=== PATIENT | female | born 1985 | race Caucasian/White ===

== ENCOUNTER 2018-07-22 19:01 | Emergency (ER) | payer SELFPAY ==
[~2018-07-22] VITALS: Ht 160 cm; Wt 108.9 kg
[~2018-07-22 19:01] MED LIST: AC500T PO; AMOX500C2 PO; AMOX875T2 PO; CODE-54 PO; DOXY100C2 PO; IBP600T1 PO; IBP800T; IBP800T PO; NAPR-243; OSLT75C PO; PENI500T PO; PNV1TABL PO; TRAM50TA2 PO; TRM50T PO; [UNRECOGNIZED DRUG - REMARK]
--- NOTE | 2018-07-22 20:29 | ED Lower Extremity ---
General Chief Complaint: Lower Extremity Stated Complaint: L LEG PAIN/SWELLING Nursing Triage Note: PT REPORTS HAVING BILATERAL CALF PAIN ABOUT A WEEK AGO BEFORE SHE WENT ON VACATION. PT STATES THAT PAIN HAS GOTTEN WORSE IN THE LEFT CALF. PT REPORTS THAT WALKING MAKES THE PAIN WORSE TO THE POINT THAT SHE CAN BARELY GET AROUND. Nursing Sepsis Screen: No Definite Risk Source: patient Exam Limitations: no limitations History of Present Illness Date Seen by Provider: Jul 22, 2018 Time Seen by Provider: 20:26 Initial Comments To ER with intermittent lateral left leg pain for the past 2 weeks. The pain began 1 day while she was at [facility] but then went away. She then went on vacation to [place] and walked quite a lot, she's had some intermittent pain to both lower extremities laterally though the right lower extremity pain has subsided. She felt as though the left lower extremity might be a bit swollen today and more firm compared to the right. She is a nonsmoker. She is not on any exogenous estrogen. No personal or family history of DVT. She is pain-free at this very moment. The pain is intermittent. Onset: this evening Severity: moderate Pain/Injury Location: left leg Method of Injury: unknown Modifying Factors: Worse With Movement Allergies and Home Medications Allergies Coded Allergies: No Known Drug Allergies (Unverified , 07/22/18) Home Medications Acetaminophen 500 Mg Tablet, 1,000 MG PO Q6H PRN for PAIN, (Reported) Amoxicillin 500 Mg Capsule, 2 EACH PO TID Prescribed by: MARIO JAMESON on 07/01/13 1405 Amoxicillin 875 Mg Tablet, 875 MG PO BID Prescribed by: CHARITY OVALLE on 08/24/15 013 Oseltamivir Phosphate 75 Mg Cap, 75 MG PO BID Prescribed by: CHARITY OVALLE on 08/24/15 013 Tramadol Hcl 50 Mg Tablet, 50 MG PO Q4H PRN for PAIN Prescribed by: MARIO JAMESON on 07/01/13 1405 Patient Home Medication List Home Medication List Reviewed: Yes Review of Systems Constitutional: see HPI EENTM: see HPI Respiratory: no symptoms reported Cardiovascular: no symptoms reported Genitourinary: no symptoms reported Musculoskeletal: see HPI Skin: see HPI Psychiatric/Neurological: No Symptoms Reported Past Jdqxqmh-Hogmtz-Zlmzjc Hx Patient Social History Alcohol Use: Rarely Uses Recreational Drug Use: Yes Drug of Choice: MARIJUANA Smoking Status: Never a Smoker Recent Foreign Travel: No Contact w/Someone Who Travel: No Recent Infectious Disease Expo: No Recent Hopitalizations: No Seasonal Allergies Seasonal Allergies: No Past Medical History Surgeries: Yes (D & C) Respiratory: No Cardiac: No Palpitations Neurological: No Reproductive Disorders: No NURSING INSTRUCTOR History: Tubal Ligation Genitourinary: No Gastrointestinal: No Musculoskeletal: No Endocrine: No HEENT: No Cancer: No Psychosocial: Yes Anxiety Integumentary: No Blood Disorders: No Physical Exam Vital Signs Vital Signs - First Documented 07/22/18 19:36 Temp 98.6 Pulse 83 Resp 12 B/P (MAP) 141/91 (108) Pulse Ox 96 Capillary Refill : Less Than 3 Seconds Height, Weight, BMI Height: 5'3.00" Weight: 240lbs. oz. 108.107259er; BMI Method:Stated General Appearance: WD/WN, no apparent distress HEENT: PERRL/EOMI, normal ENT inspection Neck: non-tender, full range of motion Respiratory: no respiratory distress, no accessory muscle use Hips: bilateral hip non-tender, bilateral hip normal inspection, bilateral hip normal range of motion Legs: left leg other (there is no discoloration of the skin to either lower extremity. The dorsalis pedis pulses +2 bilaterally. The left calf is firm. However I'm able to passively dorsiflex and plantar flex as well as medially rotate the ankle and laterally rotate the ankle without any increase in pain so I do not suspect an exertional compartment syndrome.) Knees: bilateral knee non-tender, bilateral knee normal inspection, bilateral knee normal range of motion Ankles: bilateral ankle non-tender, bilateral ankle normal inspection, bilateral ankle normal range of motion Feet: bilateral foot non-tender, bilateral foot normal inspection, bilateral foot normal range of motion Neurologic/Psychiatric: alert, normal mood/affect, oriented x 3 Skin: normal color, warm/dry [place] it is perfectly symmetrical at 16& 3/4 inches bilaterally Progress/Results/Core Measures Results/Orders Lab Results Laboratory Tests Test 07/22/18 20:30 Range/Units White Blood Count 12.0 H 4.3-11.0 10^3/uL Red Blood Count 4.58 4.35-5.85 10^6/uL Hemoglobin 12.8 11.5-16.0 G/DL Hematocrit 40 35-52 % Mean Corpuscular Volume 88 80-99 FL Mean Corpuscular Hemoglobin 28 25-34 PG Mean Corpuscular Hemoglobin Concent 32 32-36 G/DL Red Cell Distribution Width 13.7 10.0-14.5 % Platelet Count 311 130-400 10^3/uL Mean Platelet Volume 10.4 7.4-10.4 FL Neutrophils (%) (Auto) 59 42-75 % Lymphocytes (%) (Auto) 32 12-44 % Monocytes (%) (Auto) 7 0-12 % Eosinophils (%) (Auto) 1 0-10 % Basophils (%) (Auto) 0 0-10 % Neutrophils # (Auto) 7.1 1.8-7.8 X 10^3 Lymphocytes # (Auto) 3.9 1.0-4.0 X 10^3 Monocytes # (Auto) 0.9 0.0-1.0 X 10^3 Eosinophils # (Auto) 0.2 0.0-0.3 10^3/uL Basophils # (Auto) 0.0 0.0-0.1 10^3/uL D-Dimer 0.38 0.00-0.49 UG/ML Serum Test, Qualitative NEGATIVE NEGATIVE My Orders Orders - LARA ALFARO APRN Cbc With Automated Diff (07/22/18 19:51) Basic Metabolic Panel (07/22/18 19:51) Fibrin Degradation Products (07/22/18 19:51) Hcg,Qualitative Serum (07/22/18 19:51) Tibia/Fibula, Left, 2 Views (07/22/18 20:44) Vital Signs/I&O 07/22/18 19:36 Temp 98.6 Pulse 83 Resp 12 B/P (MAP) 141/91 (108) Pulse Ox 96 Blood Pressure Mean: 108 Departure Impression Primary Impression: Left leg pain Disposition: 01 HOME, SELF-CARE Condition: Stable Departure-Patient Inst. Decision time for Depature: 20:45 Referrals: [facility] (PCP/Family) Primary Care Physician Patient Instructions: NO INSTRUCTIONS GIVEN Add. Discharge Instructions: 1. Follow-up with your doctor next week for recheck. Tylenol and Motrin for pain control. LARA ALFARO APRN Jul 22, 2018 20:29
[2018-07-22 20:36] LABS: BASOPHILS % (AUTO) 0 % (0-10); EOSINOPHILS # (AUTO) 0.2 10^3/uL (0.0-0.3); EOSINOPHILS % (AUTO) 1 % (0-10); HEMATOCRIT 40 % (35-52); HEMOGLOBIN 12.8 G/DL (11.5-16.0); LYMPHOCYTES # (AUTO) 3.9 X 10^3 (1.0-4.0); LYMPHOCYTES % (AUTO) 32 % (12-44); MEAN CORPUSCULAR HEMOGLOBIN 28 PG (25-34); MEAN CORPUSCULAR HGB CONC 32 G/DL (32-36); MEAN CORPUSCULAR VOLUME 88 FL (80-99); MEAN PLATELET VOLUME 10.4 FL (7.4-10.4); MONOCYTES # (AUTO) 0.9 X 10^3 (0.0-1.0); MONOCYTES % (AUTO) 7 % (0-12); NEUTROPHILS # (AUTO) 7.1 X 10^3 (1.8-7.8); NEUTROPHILS % (AUTO) 59 % (42-75); PLATELET COUNT 311 10^3/uL (130-400); RED CELL DISTRIBUTION WIDTH 13.7 % (10.0-14.5)
[2018-07-22 20:58] LABS: BUN/CREATININE RATIO 14; CALCIUM 9.3 MG/DL (8.5-10.1); CARBON DIOXIDE 27 MMOL/L (21-32); CHLORIDE 105 MMOL/L (98-107); CREATININE SERUM 0.73 MG/DL (0.60-1.30); GFR ESTIMATED > 60; GLUCOSE 95 MG/DL (70-105); POTASSIUM 3.9 MMOL/L (3.6-5.0); SODIUM 142 MMOL/L (135-145)
--- NOTE | 2018-07-22 21:13 | Diagnostic Imaging Report ---
INDICATION: Having bilateral calf pain for about a week. EXAMINATION: Tibia and fibula left dated 07/22/2018 FINDINGS: Four views of the tibia and fibula No fracture or dislocation appreciated. Osseous fragment adjacent to the distal fibula appears chronic. Soft tissues demonstrate no gross acute abnormalities. There is a linear density in the proximal tibia which is nonspecific but has a benign appearance. IMPRESSION: 1. Chronic findings. No acute process. Dictated by: Dictated on workstation # [id number]
[2018-07-22 21:20] VITALS: BP 138/87
== END 2018-07-22 21:28 | disposition home or self-care (01) ==
LOC: EDUNIT# 19:01 → ER 19:02
DX: M79.605 Pain in left leg (principal); F41.9 Anxiety disorder, unspecified; F12.10 Cannabis abuse, uncomplicated; Z98.51 Tubal ligation status; Z98.890 Other specified postprocedural states
CPT/HCPCS: 36415; 73590; 80048; 84703; 85025; 85379

== ENCOUNTER 2018-07-30 16:06 | Emergency (ER) | payer SELFPAY ==
--- OUTSIDE RECORDS SUMMARY | 2018-07-30 16:10 | XMS REPORT ---
Author Author KATHIE STODDARD [facility] Address [address] [place] [address] Care Team Providers Care Manometer Technician Name Role Phone KATHIE STODDARD Unavailable PROBLEMS Type Condition ICD9-CM Code [id number] Code Onset Dates Condition Status SNOMED Code Problem Acute stress reaction F43.0 Active 66641966 Problem Non morbid obesity due to excess calories E66.09 Active 968017726 Problem Generalized anxiety disorder 300.02 Active 35057563 ALLERGIES No Known Allergies ENCOUNTERS Encounter Location Date Diagnosis [facility] [address] [address] September, [facility] [address] [address] September, Right shoulder pain, unspecified chronicity M25.511 [facility] [address] [address] Apr, Chest pain, unspecified type R07.9 and Acute stress reaction F43.0 [facility] [id number] [place] [address] Apr, [facility] [address] [address] Jul, Costochondritis M94.0 and Non morbid obesity due to excess calories E66.09 [facility] [address] [address] Jul, [facility] [address] [address] Jul, [facility] [address] [address] Jun, Routine gynecological examination Z01.419 [facility] [address] [facility] [id number] [place] [address] Apr, Atypical pneumonia J18.9 [facility] [address] [facility] [id number], [place] [address] Mar, Encounter for immunization Z23 [facility] [address] [facility] [id number], [place] [address] Jan, [facility] [address] [facility] [id number] [address] Dec, IMMUNIZATIONS No Known Immunizations SOCIAL HISTORY Never Assessed REASON FOR VISIT Pain (acute) shoulder Pt c/o pain in R shoulder, states is worse with movement , started 2 weeks ago ERIK Zhang PLAN OF CARE Activity Details Follow Up prn Reason: VITAL SIGNS Height 63 in 2017-09-12 Weight 239.6 lbs 2017-09-12 Temperature 97.2 degrees Fahrenheit 2017-09-12 Heart Rate 80 bpm 2017-09-12 Respiratory Rate 20 2017-09-12 BMI 42.44 kg/m2 2017-09-12 Blood pressure systolic 124 mmHg 2017-09-12 Blood pressure diastolic 82 mmHg 2017-09-12 MEDICATIONS Medication Instructions Dosage Frequency Start Date End Date Duration Status Albuterol Sulfate (2.5 MG/3ML) 0.083% Inhalation every 6 hrs as needed 3 ml Apr, 5 days Active RESULTS Name Result Date Reference Range Xray : Shoulder, Right 2 view (IN HOUSE) 2017-09-12 PROCEDURES Procedure Date Ordered Result Body Site X-RAY EXAM OF SHOULDER September 12, 2017 INSTRUCTIONS MEDICATIONS ADMINISTERED No Known Medications MEDICAL (GENERAL) HISTORY Type Description Date Surgical History Tubal Ligation 2012 Surgical History dilatation and curettage 2006 Hospitalization History Childbirth
--- OUTSIDE RECORDS SUMMARY | 2018-07-30 16:10 | XMS REPORT ---
Author Author LAFLEURLIONEL Ross Organization [facility] Address [address] [place] [address] Care Team Providers Care Plastics Production Machine Operator Name Role Phone LIONEL LAFLEUR Unavailable PROBLEMS Type Condition ICD9-CM Code [id number] Code Onset Dates Condition Status SNOMED Code Problem Acute stress reaction F43.0 Active 22593513 Problem Non morbid obesity due to excess calories E66.09 Active 301575971 Problem Generalized anxiety disorder 300.02 Active 56699190 ALLERGIES No Information ENCOUNTERS Encounter Location Date Diagnosis [facility] [address] [address] September, [facility] [address] [address] September, Right shoulder pain, unspecified chronicity M25.511 [facility] [id number] [place] [address] Apr, Chest pain, unspecified type R07.9 and Acute stress reaction F43.0 [facility] [id number] [place] [address] Apr, [facility] [id number] [place] [address] Jul, Costochondritis M94.0 and Non morbid obesity due to excess calories E66.09 [facility] [address] [address] Jul, [facility] [address] [address] Jul, [facility] [id number] [place] [address] 28 Feb, 2017 Routine gynecological examination Z01.419 [facility] [address] [facility] [id number] [place] [address] Apr, Atypical pneumonia J18.9 [facility] [address] [id number], [place] [address] Mar, Encounter for immunization Z23 [facility] [address] [id number] [address] Jan, [facility] [address] [id number], [place] [address] Dec, IMMUNIZATIONS No Known Immunizations SOCIAL HISTORY Never Assessed REASON FOR VISIT FYI PLAN OF CARE VITAL SIGNS MEDICATIONS Unknown Medications RESULTS No Results PROCEDURES No Known procedures INSTRUCTIONS MEDICATIONS ADMINISTERED No Known Medications MEDICAL (GENERAL) HISTORY Type Description Date Surgical History Tubal Ligation 2012 Surgical History dilatation and curettage 2006 Hospitalization History Childbirth
--- OUTSIDE RECORDS SUMMARY | 2018-07-30 16:10 | XMS REPORT ---
Author Author ANDREW GERARDO [facility] Address [address] [place] [address] Care Team Providers Care Steel Wheel Engraver Name Role Phone ANDREW GERARDO Unavailable PROBLEMS Type Condition ICD9-CM Code UHG22-KB Code Onset Dates Condition Status SNOMED Code Problem Non morbid obesity due to excess calories E66.09 Active 130348104 Problem Generalized anxiety disorder 300.02 Active 91313380 ALLERGIES No Information SOCIAL HISTORY Never Assessed PLAN OF CARE VITAL SIGNS MEDICATIONS No Known Medications RESULTS No Results PROCEDURES No Known procedures IMMUNIZATIONS No Known Immunizations MEDICAL (GENERAL) HISTORY Type Description Date Surgical History Tubal Ligation 2012 Surgical History dilatation and curettage 2006 Hospitalization History Childbirth
--- OUTSIDE RECORDS SUMMARY | 2018-07-30 16:11 | XMS REPORT ---
Author Author ANDREW GERARDO Organization [facility] Address [address] [place] [address] Care Team Providers Care Bituminous Paving Machine Operator Name Role Phone HUMAIRA, ANDREW Unavailable PROBLEMS Type Condition ICD9-CM Code HFM01-IK Code Onset Dates Condition Status SNOMED Code Problem Non morbid obesity due to excess calories E66.09 Active 008723357 Problem Generalized anxiety disorder 300.02 Active 09581429 ALLERGIES No Known Allergies SOCIAL HISTORY Never Assessed PLAN OF CARE Activity Details Follow Up 1 Year, sooner prn Reason: VITAL SIGNS Height 63 in 2016-07-09 Weight 240.2 lbs 2016-07-09 Temperature 97.2 degrees Fahrenheit 2016-07-09 Heart Rate 84 bpm 2016-07-09 Respiratory Rate 20 2016-07-09 BMI 42.54 kg/m2 2016-07-09 Blood pressure systolic 132 mmHg 2016-07-09 Blood pressure diastolic 78 mmHg 2016-07-09 MEDICATIONS Medication Instructions Dosage Frequency Start Date End Date Duration Status Albuterol Sulfate (2.5 MG/3ML) 0.083% Inhalation every 6 hrs as needed 3 ml Apr, 5 days Active RESULTS Name Result Date Reference Range TRICHOMONAS (IN HOUSE) 2016-07-09 TRICHOMONAS Negative Control + Lot # [id number] Exp date 06/2017 BACTERIAL VAGINOSIS (IN HOUSE) 2016-07-09 RESULTS Negative Control + Lot # [id number] Exp date 01/2017 CULTURE, GENITAL 2016-07-09 Genital Culture, Routine Final report Result 1 PAP TEST W/ HPV REGARDLESS 2016-07-09 DIAGNOSIS: Specimen adequacy: Clinician provided ICD10: Performed by: . . Note: HPV, high-risk Negative Negative PDF Report 2016-07-09 PDF Report1 LCLS PROCEDURES Procedure Date Ordered Result Body Site SPECIMEN HANDLING Jul 09, 2016 GAR VAG, DNA, DIR PROBE Jul 09, 2016 No Charge Jul 09, 2016 TRICHOMONAS ASSAY W/OPTIC Jul 09, 2016 CULTURE, BACTERIA, OTHER Jul 09, 2016 IMMUNIZATIONS No Known Immunizations MEDICAL (GENERAL) HISTORY Type Description Date Surgical History Tubal Ligation 2012 Surgical History dilatation and curettage 2006 Hospitalization History Childbirth
--- OUTSIDE RECORDS SUMMARY | 2018-07-30 16:11 | XMS REPORT ---
Author Author CHAPARRITA SIN Organization [facility] Address [address] [place] [address] Care Team Providers Care Safety Investigator/Cause Analyst Name Role Phone CHAPARRITA SIN Unavailable PROBLEMS Type Condition ICD9-CM Code LSL24-BX Code Onset Dates Condition Status SNOMED Code Problem Acute stress reaction F43.0 Active 12487338 Problem Non morbid obesity due to excess calories E66.09 Active 790635067 Problem Generalized anxiety disorder 300.02 Active 91896532 ALLERGIES No Information ENCOUNTERS Encounter Location Date Diagnosis [facility] [address] [address] September, [facility] [address] [address] September, Right shoulder pain, unspecified chronicity M25.511 [facility] [address] [address] Apr, Chest pain, unspecified type R07.9 and Acute stress reaction F43.0 [facility] [id number] [place] [address] Apr, [facility] [id number] [place] [address] Jul, Costochondritis M94.0 and Non morbid obesity due to excess calories E66.09 [facility] [address] [address] Jul, [facility] [address] [address] Jul, [facility] [id number] [place] [address] 28 Feb, 2017 Routine gynecological examination Z01.419 [facility] [address] [id number] [address] Apr, Atypical pneumonia J18.9 [facility] [address] [id number], [place] [address] Mar, Encounter for immunization Z23 [facility] [address] [id number] [address] Jan, [facility] [id number], [place] [address] Dec, IMMUNIZATIONS No Known Immunizations SOCIAL HISTORY Never Assessed REASON FOR VISIT Phone call PLAN OF CARE VITAL SIGNS MEDICATIONS Unknown Medications RESULTS No Results PROCEDURES No Known procedures INSTRUCTIONS MEDICATIONS ADMINISTERED No Known Medications MEDICAL (GENERAL) HISTORY Type Description Date Surgical History Tubal Ligation 2012 Surgical History dilatation and curettage 2006 Hospitalization History Childbirth
--- OUTSIDE RECORDS SUMMARY | 2018-07-30 16:11 | XMS REPORT ---
Author ZACHERY Ny [facility] [employer] Address Unknown Phone Unavailable Care Team Providers Care Cat And Dog Bather Name Role Phone ZACHERY KATE CP Unavailable Allergies No Known Allergies Problems Problem Type Condition Code Onset Dates Condition Status Assessment Encounter for immunization Z23 Active Problem Generalized anxiety disorder 300.02 Active Medications No Known Medications Procedures Procedure Coding System Code Date FLUMIST QUAD (2-49 YRS)-MEDIMMUNE-2014 CPT-4 91998 Mar 20, 2015 Results No Known Results Immunizations Vaccine Administration Date FLUMIST QUAD (2-49 YRS)-MEDIMMUNE-2015 Mar 20, 2015 Summary Purpose eClinicalWorks Submission
--- OUTSIDE RECORDS SUMMARY | 2018-07-30 16:11 | XMS REPORT | Continuity of Care Document ---
Author Author [facility] Organization [facility] Address Unknown Phone Unavailable Allergies Active Description Code Type Severity Reaction Onset Reported/Identified Relationship to Patient Clinical Status Yes No Known Drug Allergies [id number] Drug Allergy Mild N/A 07/22/2018 Medications There is no data. Problems Date Dx Coded Attending Type Code Diagnosis Diagnosed By 06/28/2011 Ot 650 06/28/2011 Ot V27.0 12/17/2012 [facility] 300.02 AN GEN ANXIETY 07/01/2013 MARIO GEE Ot 034.0 STREP SORE THROAT 07/01/2013 MARIO GEE Ot 462 ACUTE PHARYNGITIS 07/04/2015 Ot 649.63 08/24/2015 Ot 649.63 08/24/2015 Ot 649.63 08/24/2015 VASQUEZ DO, CHRAITY K Ot R05 COUGH 08/24/2015 VASQUEZ DO, CHARITY K Ot R09.81 NASAL CONGESTION 08/24/2015 VASQUEZ DO, CHARITY K Ot R50.9 FEVER, UNSPECIFIED 08/24/2015 VASQUEZ DO, CHARITY K Ot R53.81 OTHER MALAISE 08/24/2015 VASQUEZ DO, CHARITY K Ot Z87.891 PERSONAL HISTORY OF NICOTINE DEPENDENCE 08/24/2015 VASQUEZ DO, CHARITY K Ot R05 08/24/2015 VASQUEZ DO, CHARITY K Ot R09.81 08/24/2015 VASQUEZ DO, CHARITY K Ot R50.9 08/24/2015 VASQUEZ DO, CHARITY K Ot R53.81 08/24/2015 VASQUEZ , CHARITY K Ot Z87.891 07/24/2018 LARA ALFARO ACCESS SPECIALIST Ot F12.10 CANNABIS ABUSE, UNCOMPLICATED 07/24/2018 LARA ALFARO APRN Ot F41.9 ANXIETY DISORDER, UNSPECIFIED 07/24/2018 LARA ALFARO ACCESS SPECIALIST Ot M79.605 PAIN IN LEFT LEG 07/24/2018 LARA ALFARO APRN Ot M79.89 OTHER SPECIFIED SOFT TISSUE DISORDERS 07/24/2018 LARA ALFARO APRN Ot Z98.51 TUBAL LIGATION STATUS 07/24/2018 LARA ALFARO APRN Ot Z98.890 OTHER SPECIFIED POSTPROCEDURAL STATES Procedures Code [place] [address] PSYCH DIAGNOSTIC EVALUATION 12/24/2012 Results Test Result Range Genital Culture, Routine - 07/09/16 11:03 Genital Culture, Routine Note Pap Lb, HPV-hr - 07/09/16 11:03 HPV, high-risk Negative Negative DIAGNOSIS: Comment Specimen adequacy: Comment Clinician provided ICD10: Comment Performed by: Comment . . Note: Comment Complete blood count (CBC) with automated white blood cell (WBC) differential - 07/22/18 20:30 Blood leukocytes automated count (number/volume) 12.0 10*3/uL 4.3-11.0 Blood erythrocytes automated count (number/volume) 4.58 10*6/uL 4.35-5.85 Venous blood hemoglobin measurement (mass/volume) 12.8 g/dL 11.5-16.0 Blood hematocrit (volume fraction) 40 % 35-52 Automated erythrocyte mean corpuscular volume 88 [foz_us] 80-99 Automated erythrocyte mean corpuscular hemoglobin (mass per erythrocyte) 28 pg 25-34 Automated erythrocyte mean corpuscular hemoglobin concentration measurement ( mass/volume) 32 g/dL 32-36 Automated erythrocyte distribution width ratio 13.7 % 10.0-14.5 Automated blood platelet count (count/volume) 311 10*3/uL 130-400 Automated blood platelet mean volume measurement 10.4 [foz_us] 7.4-10.4 Automated blood neutrophils/100 leukocytes 59 % 42-75 Automated blood lymphocytes/100 leukocytes 32 % 12-44 Blood monocytes/100 leukocytes 7 % 0-12 Automated blood eosinophils/100 leukocytes 1 % 0-10 Automated blood basophils/100 leukocytes 0 % 0-10 Blood neutrophils automated count (number/volume) 7.1 10*3 1.8-7.8 Blood lymphocytes automated count (number/volume) 3.9 10*3 1.0-4.0 Blood monocytes automated count (number/volume) 0.9 10*3 0.0-1.0 Automated eosinophil count 0.2 10*3/uL 0.0-0.3 Automated blood basophil count (count/volume) 0.0 10*3/uL 0.0-0.1 Serum or plasma choriogonadotropin ( test) detection - 07/22/18 20:30 Serum or plasma choriogonadotropin ( test) detection NEGATIVE NEGATIVE Fibrin D-dimer FEU measurement in platelet poor plasma (mass/volume) - 20:30 Fibrin D-dimer FEU measurement in platelet poor plasma (mass/volume) 0.38 ug/mL 0.00-0.49 Whole blood basic metabolic panel - 07/22/18 20:30 Serum or plasma sodium measurement (moles/volume) 142 mmol/L 135-145 Serum or plasma potassium measurement (moles/volume) 3.9 mmol/L 3.6-5.0 Serum or plasma chloride measurement (moles/volume) 105 mmol/L 98-107 Carbon dioxide 27 mmol/L 21-32 Serum or plasma anion gap determination (moles/volume) 10 mmol/L 5-14 Serum or plasma urea nitrogen measurement (mass/volume) 10 mg/dL 7-18 Serum or plasma creatinine measurement (mass/volume) 0.73 mg/dL 0.60-1.30 Serum or plasma urea nitrogen/creatinine mass ratio 14 NRG Serum or plasma creatinine measurement with calculation of estimated glomerular filtration rate > NRG Serum or plasma glucose measurement (mass/volume) 95 mg/dL 70-105 Serum or plasma calcium measurement (mass/volume) 9.3 mg/dL 8.5-10.1 Encounters ACCT No. Visit Date/Time Discharge Status Pt. Type Provider Facility Loc./Unit Complaint [id number] 07/22/2018 19:02:00 07/22/2018 21:28:00 DIS Outpatient LARA ALFARO APRN [facility] ER L LEG PAIN/SWELLING [id number] 08/24/2015 00:03:00 08/24/2015 02:02:00 DIS Emergency CHARITY OVALLE DO [facility] ER COUGH,RUNNY NOSE,FEVER, BODY ACHE,GONZALEZ [id number] 07/01/2013 11:13:00 07/01/2013 14:16:00 DIS Emergency AMRIO GEE [facility] ER SORE THROAT [id number] 06/26/2011 19:25:00 Document Registration [id number] 03/21/2011 15:30:00 Document Registration [id number] 07/12/2016 15:10:00 Document Registration [id number] 07/15/2016 11:06:00 Document Registration [id number] 09/15/2017 18:40:00 09/15/2017 23:59:59 CLS Outpatient CHAPARRITA SIN [facility] [id number] 12/17/2012 14:49:00 12/17/2012 23:59:59 CLS Outpatient STARKS LEW [facility]RICH
--- OUTSIDE RECORDS SUMMARY | 2018-07-30 16:11 | XMS REPORT ---
Author Author EDDY DAY Organization [facility] Address [address] [place] [address] Care Team Providers Care Airborne Mission Systems Superintendent Name Role Phone EDDY DAY Unavailable PROBLEMS Type Condition ICD9-CM Code LWC99-MN Code Onset Dates Condition Status SNOMED Code Problem Generalized anxiety disorder 300.02 Active 59651717 Assessment Atypical pneumonia J18.9 Apr, Active 262818851 ALLERGIES Substance Reaction Event Type Date Status N.K.D.A. Unknown Non Drug Allergy Apr, Unknown SOCIAL HISTORY No smoking Hx information available PLAN OF CARE VITAL SIGNS Weight 236.2 lbs 2016-04-19 Heart Rate 76 bpm 2016-04-19 Respiratory Rate 22 2016-04-19 Blood pressure systolic 120 mmHg 2016-04-19 Blood pressure diastolic 76 mmHg 2016-04-19 MEDICATIONS Medication Instructions Dosage Frequency Start Date End Date Duration Status Albuterol Sulfate (2.5 MG/3ML) 0.083% Inhalation every 6 hrs as needed 3 ml Apr, 5 days Active Azithromycin 250 MG Orally Once a day 2 tablets on the first day, then 1 tablet daily for 4 days 24h Apr, Apr, 5 day(s) Active RESULTS No Results PROCEDURES Procedure Date Ordered Related Diagnosis Body Site ALBUTEROL UNIT DOSE FORM INHALED 2016-04-19 N/A ALBUTEROL INHAL UNIT DOSE 1 MG Apr 19, 2016 Office Visit, Est Pt., Level 3 Apr 19, 2016 IMMUNIZATIONS No Known Immunizations
--- OUTSIDE RECORDS SUMMARY | 2018-07-30 16:11 | XMS REPORT ---
Author Author LAFLEURLIONEL Ross Organization [facility] Address [address] [place] [address] Care Team Providers Care Quality Tester Name Role Phone LIONEL LAFLEUR Unavailable PROBLEMS Type Condition ICD9-CM Code AJW50-MV Code Onset Dates Condition Status SNOMED Code Problem Acute stress reaction F43.0 Active 11670218 Problem Non morbid obesity due to excess calories E66.09 Active 432204328 Problem Generalized anxiety disorder 300.02 Active 58860103 ALLERGIES No Known Allergies ENCOUNTERS Encounter Location Date Diagnosis [facility] [id number] [place] [phone] September, [facility] [address] [address] September, Right shoulder pain, unspecified chronicity M25.511 [facility] [address] [address] Apr, Chest pain, unspecified type R07.9 and Acute stress reaction F43.0 [facility] [id number] [place] [address] Apr, [facility] [id number] [place] [address] Jul, Costochondritis M94.0 and Non morbid obesity due to excess calories E66.09 [facility] [address] [address] Jul, [facility] [address] [address] Jul, [facility] [id number] [place] [address] Jun, Routine gynecological examination Z01.419 [facility] [address] [facility] [place] [id number] [place] [address] Apr, Atypical pneumonia J18.9 [facility] [address] [facility] [id number] [address] Mar, 2015 Encounter for immunization Z23 [facility] [address] [facility] [id number], [place] [address] Jan, [facility] [address] [facility] [id number], [place] [address] Dec, IMMUNIZATIONS No Known Immunizations SOCIAL HISTORY Never Assessed REASON FOR VISIT pulled muscle----DBennettRN, chest pain, intermittent x1 year, worsened yesterday and left arm numb then painful, and blurred vision in left eye PLAN OF CARE Activity Details Follow Up 4 Weeks Reason:f/u w PCP VITAL SIGNS Height 63 in 2017-04-18 Weight 240 lbs 2017-04-18 Temperature 98.1 degrees Fahrenheit 2017-04-18 Heart Rate 70 bpm 2017-04-18 Respiratory Rate 20 2017-04-18 BMI 42.51 kg/m2 2017-04-18 Blood pressure systolic 120 mmHg 2017-04-18 Blood pressure diastolic 84 mmHg 2017-04-18 MEDICATIONS Medication Instructions Dosage Frequency Start Date End Date Duration Status Albuterol Sulfate (2.5 MG/3ML) 0.083% Inhalation every 6 hrs as needed 3 ml Apr, 5 days Active RESULTS No Results PROCEDURES Procedure Date Ordered Result Body Site EKG, TRACING (IN-HOUSE) 2017-04-18 N/A ELECTROCARDIOGRAM, TRACING Apr 18, 2017 INSTRUCTIONS MEDICATIONS ADMINISTERED No Known Medications MEDICAL (GENERAL) HISTORY Type Description Date Surgical History Tubal Ligation 2012 Surgical History dilatation and curettage 2005 Hospitalization History Childbirth
--- OUTSIDE RECORDS SUMMARY | 2018-07-30 16:11 | XMS REPORT ---
Author Author CHAPARRITA SIN [facility] Address [address] [place] [address] Care Team Providers Care Household Appliance Repairer Name Role Phone CHAPARRITA SIN Unavailable PROBLEMS Type Condition ICD9-CM Code ZBN99-TM Code Onset Dates Condition Status SNOMED Code Problem Non morbid obesity due to excess calories E66.09 Active 564139247 Problem Generalized anxiety disorder 300.02 Active 55139322 ALLERGIES No Known Allergies SOCIAL HISTORY Never Assessed PLAN OF CARE VITAL SIGNS MEDICATIONS Medication Instructions Dosage Frequency Start Date End Date Duration Status Albuterol Sulfate (2.5 MG/3ML) 0.083% Inhalation every 6 hrs as needed 3 ml Apr, 5 days Active RESULTS No Results PROCEDURES No Known procedures IMMUNIZATIONS No Known Immunizations MEDICAL (GENERAL) HISTORY Type Description Date Surgical History Tubal Ligation 2012 Surgical History dilatation and curettage 2006 Hospitalization History Childbirth
== END 2018-07-30 17:35 | disposition left against medical advice (07) ==
LOC: EDUNIT# 16:06 → ER 16:07
DX: R07.9 Chest pain, unspecified (principal); F41.9 Anxiety disorder, unspecified

== ENCOUNTER → 2018-08-14 | Outpatient (CLI) | payer SELFPAY ==
--- NOTE | 2018-08-14 10:42 | Diagnostic Imaging Report ---
PROCEDURE: US Gallbladder. TECHNIQUE: Multiple real-time grayscale images were obtained over the right upper quadrant in various projections. INDICATION: Upper abdominal pain. FINDINGS: Liver is enlarged at 20 cm. There is diffuse increased echogenicity throughout the liver consistent with hepatic steatosis. Portal vein is patent and shows normal direction of flow. Gallbladder does contain multiple stones. Gallbladder wall is thickened up to 3 mm. No pericholecystic fluid or biliary ductal dilatation is seen. Pancreas is poorly visualized. Right kidney is unremarkable. There is no ascites. IMPRESSION: 1. Hepatomegaly and hepatic steatosis. 2. Cholelithiasis with gallbladder wall thickening, suspicious for acute cholecystitis. If this is of clinical concern, HIDA scan may be useful for further evaluation. Dictated by: Dictated on workstation # [id number]
== END ==
LOC: RAD 08:56
PROVIDERS: ATTEND Internal Medicine
DX: K80.20 Calculus of gallbladder without cholecystitis without obstruction (principal); K76.0 Fatty (change of) liver, not elsewhere classified; K82.8 Other specified diseases of gallbladder
CPT/HCPCS: 76705

== ENCOUNTER 2021-07-27 07:20 | Emergency (ER) | payer SELFPAY ==
[~2021-07-27] VITALS: Ht 160 cm; Wt 78.9 kg
--- NOTE | 2021-07-27 08:05 | ED General ---
General Chief Complaint: Back Problems Stated Complaint: LEFT UPPER BACK/RIB PAIN Nursing Triage Note: PT AMBULATE TO ROOM 06 WITH C/O LEFT UPPER BACK PAIN THAT RADIATES TO LEFT RIB. PT REPORTS PAIN DURING INHALATION AND WHEN MOVING ARM. PT REPORTS COUGH X3 DAYS. PT STATES THAT THIS PAIN HAS HAPPENED BEFORE AND IS RELATED TO HER ANXIETY. Source of Information: Patient Exam Limitations: No Limitations History of Present Illness Date Seen by Provider: Jul 27, 2021 Time Seen by Provider: 07:50 Initial Comments This 35-year-old woman presents to the emergency room with concerns about left mid back pain that radiates to the left lateral chest. It is worse with deep breathing and certain movements of her arm. She is tender to palpation in that region. She has had some subtle cough in recent days and had some left upper chest discomfort over the past couple of weeks which she attributes to her typical anxiety symptoms. She denies any chest pain today. She is afebrile and denies any other symptoms of infectious illness such as chills, nausea, diarrhea, upper respiratory symptoms, etc. Allergies and Home Medications Allergies Coded Allergies: No Known Drug Allergies (Unverified , 07/22/18) Patient Home Medication List Home Medication List Reviewed: Yes Acetaminophen (Tylenol) 500 Mg Tablet, 1,000 MG PO Q6H PRN for PAIN, (Reported) Entered as Reported by: MONSE RAMIREZ on 07/01/13 1127 Amoxicillin (Amoxicillin) 500 Mg Capsule, 2 EACH PO TID Prescribed by: MARIO JAMESON on 07/01/13 1405 Amoxicillin (Amoxicillin) 875 Mg Tablet, 875 MG PO BID Prescribed by: CHARITY OVALLE on 08/24/15 0139 Oseltamivir Phosphate (Tamiflu) 75 Mg Cap, 75 MG PO BID Prescribed by: CHARITY OVALLE on 08/24/15 0139 Tramadol Hcl (Tramadol Hcl) 50 Mg Tablet, 50 MG PO Q4H PRN for PAIN Prescribed by: MARIO JAMESON on 07/01/13 1405 Review of Systems Review of Systems Constitutional: no symptoms reported EENTM: no symptoms reported Respiratory: see HPI Cardiovascular: see HPI Gastrointestinal: no symptoms reported Genitourinary: no symptoms reported : No Musculoskeletal: see HPI Skin: no symptoms reported Psychiatric/Neurological: See HPI Hematologic/Lymphatic: No Symptoms Reported Immunological/Allergic: no symptoms reported Past Llmzico-Hnqcqi-Uerogt Hx Patient Social History Tobacco Use?: No Smoking Status: Never a Smoker Smokeless Tobacco Frequency: Never a User Use of E-Cig and/or Vaping dev: Yes E-Cig or Vaping type used: Nicotine Use of E-Cig and/or Vaping Jared: Light User Substance use?: Yes Substance type: Marijuana Substance frequency: Couple times a week Alcohol Use?: Yes Alcohol Frequency: Couple times a week Pt feels they are or have been: No Immunizations Up To Date First/Initial COVID19 Vaccinat: 04/03/21 Second COVID19 Vaccination Carlos: COVID19 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: [employer] Seasonal Allergies Seasonal Allergies: No Past Medical History Surgeries: Yes (D & C) Tubal Ligation Respiratory: No Cardiac: No Palpitations Neurological: No : No 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 oz. 108.070497pl; 30.00 BMI Method:Stated General Appearance: No Apparent Distress, WD/WN HEENT: PERRL/EOMI, Normal ENT Inspection Neck: Normal Inspection Respiratory: Lungs Clear, Normal Breath Sounds, No Accessory Muscle Use, Other (Left lateral chest wall tenderness to deeper palpation. Skin normal to exam. Not tender to light palpation.) Cardiovascular: Regular Rate, Rhythm, No Edema, No Murmur Back: Normal Inspection, No Vertebral Tenderness, Other (Tenderness in the left mid paraspinous musculature) Extremity: Normal Inspection, Non Tender, No Calf Tenderness, No Pedal Edema Neurologic/Psychiatric: Alert, Oriented x3, No Motor/Sensory Deficits, Normal Mood/Affect, design quality engineer II-XII Norm as Tested Skin: Normal Color, Warm/Dry; No Rash Progress/Results/Core Measures Suspected Sepsis SIRS Temperature: Pulse: 76 Respiratory Rate: 17 Blood Pressure 131 /83 Mean: 99 Results/Orders My Orders Orders - ARIANNE RAMOS MD Urine Bedside (07/27/21 07:58) Chest Pa/Lat (2 View) (07/27/21 07:58) Vital Signs/I&O 07/27/21 07:29 Temp 35.9 Pulse 76 Resp 17 B/P (MAP) 131/83 (99) O2 Delivery Room Air Capillary Refill : Less Than 3 Seconds Blood Pressure Mean: 99 Departure Impression Primary Impression: Mid back pain Additional Impression: Chest wall pain Disposition: 01 HOME, SELF-CARE Condition: Stable Departure-Patient Inst. Referrals: [facility] (PCP/Family) Primary Care Physician Patient Instructions: Upper Back Pain Add. Discharge Instructions: Your chest x-ray showed no evidence of pneumonia or rib injuries. Your pain is likely due to musculoskeletal inflammation or muscle strain. Treat your pain with ibuprofen up to 600 mg every 6 hours as needed. Add Tylenol (acetaminophen) up to 1000 mg every 6 hours as needed for additional pain relief. You may try icing or gentle heat in 20-minute intervals. Topical pain reliever such as lidocaine patches may also be used per package instructions. Call with questions or concerns. Return to the ER if you have worsening symptoms despite following these instructions. Follow-up with your primary care provider in 1 to 2 weeks if the pain does not resolve. All discharge instructions reviewed with patient and/or family. Voiced understanding. Copy Copies To 1: ZACHERY KATE JOSHUA T MD Jul 27, 2021 08:05
--- NOTE | 2021-07-27 08:38 | Diagnostic Imaging Report ---
INDICATION: Chest pain PA and lateral chest obtained at 8:24 a.m. Heart and mediastinal silhouette are normal in appearance. The lungs are clear. There is no pneumothorax or pleural fluid. IMPRESSION: Negative chest. Dictated by: Dictated on workstation # [id number]
[2021-07-27 09:05] VITALS: BP 131/76
== END 2021-07-27 09:05 | disposition home or self-care (01) ==
LOC: EDUNIT# 07:20 → ER 07:23
DX: R07.89 Other chest pain (principal); M54.6 Pain in thoracic spine
CPT/HCPCS: 71046; 84703

== ENCOUNTER 2022-10-04 09:54 | Emergency (ER) | payer SELFPAY ==
[~2022-10-04] VITALS: Ht 160 cm; Wt 86.2 kg
--- NOTE | 2022-10-04 10:41 | Diagnostic Imaging Report ---
Indication: Sternal chest pain radiating to the right shoulder. Time of Exam: 10:34 AM Correlation is made with prior chest 07/27/2021. Findings: The heart size is normal. The pulmonary vascularity is unremarkable. The lungs are clear. No infiltrate, effusion or pneumothorax is detected. Impression: No acute cardiopulmonary process is detected. Dictated by: Dictated on workstation # [id number]
--- NOTE | 2022-10-04 10:58 | ED Chest Pain ---
General Chief Complaint: Chest Pain Stated Complaint: IRREGULAR HEART RATE | Nursing Triage Note: PT AMBULATE TO ROOM 08 WITHOUT DIFFICULTY WITH C/O STERNAL CHEST PAIN RADIATING TO RIGHT SHOULDER. PT SENT FROM [facility] FROM [facility] WITH PULSE OF 48. PT PULSE OF 65 UPON ARRIVAL. PT REFUSING IV. Source: patient Exam Limitations: no limitations History of Present Illness Date Seen by Provider: October 04, 2022 Time Seen by Provider: 10:15 Initial Comments Here from [facility] with report of bradycardia in association with chest pain. She has been having that for most of the morning. She states that she usually has pain like this associated rotator cuff. She went to [facility] for the right upper chest pain. They did an EKG and were concerned about her heart rate. She states she became quite anxious and actually was getting some got twisting and she states that she has nervous bowel movements. It was during that time they did the EKG and then sent her here. She does have history of anxiety and she is off her BuSpar for the last several months. She was asked for prescription for that as well. Overall now she is feeling much better with respect to pain and is not short of breath. She has had no recent car rides, plane trips or trauma or surgery. No history of blood clots. She states the pain is worse when moving her right shoulder and better with rest. Timing/Duration: 4-6 hours Severity/Quality: mild, moderate Location: shoulder (Right), other (Right upper chest) Radiation: shoulders (Right), back (Right) Prior CP/Workup: no prior cardiac workup ASA po CREPE BOX TENDER: No NTG SL CREPE BOX TENDER: No Associated Symptoms: back pain; No nausea/vomiting, No shortness of breath, No weakness Allergies and Home Medications Allergies Coded Allergies: No Known Drug Allergies (Unverified , 07/22/18) Patient Home Medication List Home Medication List Reviewed: Yes Acetaminophen (Tylenol) 500 Mg Tablet, 1,000 MG PO Q6H PRN for PAIN, (Reported) Entered as Reported by: MONSE RAMIREZ on 07/01/13 1127 Amoxicillin (Amoxicillin) 500 Mg Capsule, 2 EACH PO TID Prescribed by: MARIO JAMESON on 07/01/13 1405 Amoxicillin (Amoxicillin) 875 Mg Tablet, 875 MG PO BID Prescribed by: CHARITY OVALLE on 08/24/15 0139 Oseltamivir Phosphate (Tamiflu) 75 Mg Cap, 75 MG PO BID Prescribed by: CHARITY OVALLE on 08/24/15 0139 Tramadol Hcl (Tramadol Hcl) 50 Mg Tablet, 50 MG PO Q4H PRN for PAIN Prescribed by: MARIO JAMESON on 07/01/13 1405 Review of Systems Review of Systems Constitutional: see HPI; No chills, No fever EENTM: No Symptoms Reported Respiratory: Denies Cough, Denies Shortness of Air Cardiovascular: Chest Pain; Denies Lightheadedness Gastrointestinal: Denies Nausea, Denies Vomiting Genitourinary: No Symptoms Reported Musculoskeletal: joint pain, muscle pain Skin: no symptoms reported Psychiatric/Neurological: Anxiety; Denies Headache Past Tcgeahv-Hlweqc-Ibhbwo Hx Patient Social History Tobacco Use?: No Smoking Status: Never a Smoker Smokeless Tobacco Frequency: Never a User Use of E-Cig and/or Vaping dev: No Use of E-Cig and/or Vaping Jared: Never a User Substance use?: Yes Substance type: Marijuana Substance frequency: Couple times a week Alcohol Use?: No Pt feels they are or have been: No Immunizations Up To Date First/Initial COVID19 Vaccinat: 04/03/21 Second COVID19 Vaccination Carlos: Seasonal Allergies Seasonal Allergies: No Past Medical History Surgeries: Yes (D & C) Tubal Ligation Respiratory: No Cardiac: No Palpitations Neurological: No 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 oz. 108.287524ih; 33.00 BMI Method:Stated General Appearance: No Apparent Distress, WD/WN Neck: Full Range of Motion, Normal Inspection, Non Tender, Supple Respiratory: Lungs Clear, Normal Breath Sounds Cardiovascular: Regular Rate, Rhythm, No Murmur Gastrointestinal: Non Tender, Soft Extremity: Normal Range of Motion, Non Tender, No Calf Tenderness Neurologic/Psychiatric: Alert, Oriented x3 Skin: Normal Color, Warm/Dry Progress/Results/Core Measures Results/Orders Lab Results Laboratory Tests Test 10/04/22 10:54 Range/Units White Blood Count 8.6 4.3-11.0 10^3/uL Red Blood Count 4.67 3.80-5.11 10^6/uL Hemoglobin 13.1 11.5-16.0 g/dL Hematocrit 40 35-52 % Mean Corpuscular Volume 86 80-99 fL Mean Corpuscular Hemoglobin 28 25-34 pg Mean Corpuscular Hemoglobin Concent 33 32-36 g/dL Red Cell Distribution Width 13.6 10.0-14.5 % Platelet Count 298 130-400 10^3/uL Mean Platelet Volume 10.5 9.0-12.2 fL Immature Granulocyte % (Auto) 0 % Neutrophils (%) (Auto) 58 42-75 % Lymphocytes (%) (Auto) 35 12-44 % Monocytes (%) (Auto) 6 0-12 % Eosinophils (%) (Auto) 1 0-10 % Basophils (%) (Auto) 1 0-10 % Neutrophils # (Auto) 5.0 1.8-7.8 10^3/uL Lymphocytes # (Auto) 3.0 1.0-4.0 10^3/uL Monocytes # (Auto) 0.5 0.0-1.0 10^3/uL Eosinophils # (Auto) 0.1 0.0-0.3 10^3/uL Basophils # (Auto) 0.1 0.0-0.1 10^3/uL Immature Granulocyte # (Auto) 0.0 0.0-0.1 10^3/uL Sodium Level 138 135-145 MMOL/L Potassium Level 3.7 3.6-5.0 MMOL/L Chloride Level 108 H 98-107 MMOL/L Carbon Dioxide Level 22 21-32 MMOL/L Anion Gap 8 5-14 MMOL/L Blood Urea Nitrogen 7 7-18 MG/DL Creatinine 0.67 0.60-1.30 MG/DL Estimat Glomerular Filtration Rate 115 BUN/Creatinine Ratio 10 Glucose Level 87 70-105 MG/DL Calcium Level 9.0 8.5-10.1 MG/DL Corrected Calcium 8.9 8.5-10.1 MG/DL Total Bilirubin 1.1 H 0.1-1.0 MG/DL Aspartate Amino Transf (AST/SGOT) 13 5-34 U/L Alanine Aminotransferase (ALT/SGPT) 14 0-55 U/L Alkaline Phosphatase 58 40-136 U/L Troponin I < 0.028 <0.028 NG/ML Total Protein 7.1 6.4-8.2 GM/DL Albumin 4.1 3.2-4.5 GM/DL My Orders Orders - RODNEY HEBERT MD Ekg Tracing (10/04/22 09:58) Cbc With Automated Diff (10/04/22 10:22) Comprehensive Metabolic Panel (10/04/22 10:22) Troponin I Canadian (10/04/22 10:22) Chest Pa/Lat (2 View) (10/04/22 10:22) Vital Signs/I&O 10/04/22 09:59 Temp 36.2 Pulse 62 Resp 19 B/P (MAP) 141/83 (102) O2 Delivery Room Air Blood Pressure Mean: 102 Progress Progress Note : Progress Note Seen and evaluated. Patient apparently is doing better now. She states that she really believes that this is musculoskeletal and origin. She is very nervous about an IV but is okay with the blood draw. She does admit to a visceral reaction with anxiety. This may be the cause of the bradycardia from the clinic. Ultimately we decided we will check basic labs via blood draw and check EKG and chest x-ray. Monitor patient. Patient denies shortness of breath and she has no indications of pulmonary embolism or risk of pulmonary embolism. No further evaluation for this. We will rule out cardiac event and check electrolytes as well as chest x-ray due to history of bronchitis recently. Differential diagnosis includes cardiac event, chest wall pain, lung abnormality, electrolyte abnormality 1025: Chest x-ray 2 view reviewed by me and shows no acute abnormality on my interpretation. Pending radiology report. 1145: Labs reviewed and CBC shows no acute findings. CMP grossly normal. Troponin is negative. EKG nonconcerning. X-ray nonconcerning. Overall she is feeling better. I think she is safe for discharge and this was discussed with the patient who agrees. Discharged home with return precautions. Patient verbalized understanding instructions and agreement with plan. Initial ECG Impression Date: October 04, 2022 Initial ECG Impression Time: 10:04 Initial ECG Rate: 57 Initial ECG Rhythm: S.Capo Comment Sinus bradycardia with sinus arrhythmia. Normal axis. No evidence of ST elevation [place]. Interpreted by me. Diagnostic Imaging Diagonstic Imaging: Xray Plain Films/CT/US/NM/MRI: chest Comments [facility] [place], [place] NAME: DERREK OLIVARES [facility] REC#: [id number] PT STATUS: REG ER : 1985 PHYSICIAN: RODNEY HEBERT MD ADMIT DATE: 10/04/22/ER Draft Date of Exam:10/04/22 CHEST PA/LAT (2 VIEW) Indication: Sternal chest pain radiating to the right shoulder. Time of Exam: 10:34 AM Correlation is made with prior chest 07/27/2021. Findings: The heart size is normal. The pulmonary vascularity is unremarkable. The lungs are clear. No infiltrate, effusion or pneumothorax is detected. Impression: No acute cardiopulmonary process is detected. Dictated on workstation # [id number] Dict: 10/04/22 1037 Trans: 10/04/22 1041 [facility] [id number] Interpreted by: JADYN SRINIVASAN MD Electronically signed by: Departure Impression Primary Impression: Chest pain Qualified Codes: R07.9 - Chest pain, unspecified Additional Impressions: Musculoskeletal pain Anxiety Disposition: 01 HOME, SELF-CARE Condition: Improved Departure-Patient Inst. Decision time for Depature: 11:51 Referrals: [facility] (PCP/Family) Primary Care Physician Patient Instructions: Chest Pain (DC), Muscle Strain ED, Anxiety, Adult ED Add. Discharge Instructions: All discharge instructions reviewed with patient and/or family. Voiced understanding. You may take ibuprofen 600 mg every 8 hours as needed for pain. You may also take Tylenol/acetaminophen 1000 mg every 8 hours as needed for pain. Follow-up with [facility] for recheck and further evaluation and to restart your BuSpar for your anxiety. No significant abnormalities noted here today. Return for worse pain, fever, vomiting, weakness, breathing problems or other concerns as needed. RODNEY HEBERT MD October 04, 2022 10:58
[2022-10-04 11:00] LABS: BASOPHILS # (AUTO) 0.1 10^3/uL (0.0-0.1); BASOPHILS % (AUTO) 1 % (0-10); EOSINOPHILS # (AUTO) 0.1 10^3/uL (0.0-0.3); EOSINOPHILS % (AUTO) 1 % (0-10); HEMATOCRIT 40 % (35-52); HEMOGLOBIN 13.1 g/dL (11.5-16.0); LYMPHOCYTES % (AUTO) 35 % (12-44); MEAN CORPUSCULAR HEMOGLOBIN 28 pg (25-34); MEAN CORPUSCULAR HGB CONC 33 g/dL (32-36); MEAN CORPUSCULAR VOLUME 86 fL (80-99); MEAN PLATELET VOLUME 10.5 fL (9.0-12.2); MONOCYTES # (AUTO) 0.5 10^3/uL (0.0-1.0); MONOCYTES % (AUTO) 6 % (0-12); NEUTROPHILS % (AUTO) 58 % (42-75); PLATELET COUNT 298 10^3/uL (130-400); WHITE BLOOD COUNT 8.6 10^3/uL (4.3-11.0)
[2022-10-04 11:07] LABS: ALBUMIN 4.1 GM/DL (3.2-4.5); CHLORIDE 108 MMOL/L (98-107); POTASSIUM 3.7 MMOL/L (3.6-5.0); SODIUM 138 MMOL/L (135-145)
[2022-10-04 11:10] LABS: GLUCOSE 87 MG/DL (70-105); TOTAL PROTEIN 7.1 GM/DL (6.4-8.2)
[2022-10-04 11:11] LABS: BILIRUBIN,TOTAL 1.1 MG/DL (0.1-1.0); CARBON DIOXIDE 22 MMOL/L (21-32)
[2022-10-04 11:13] LABS: ALKALINE PHOSPHATASE 58 U/L (40-136); CREATININE SERUM 0.67 MG/DL (0.60-1.30); GFR ESTIMATED 115
[2022-10-04 11:14] LABS: BUN/CREATININE RATIO 10
[2022-10-04 11:16] LABS: ALANINE AMINOTRANSFERASE 14 U/L (0-55)
[2022-10-04 11:58] VITALS: BP 133/69
== END 2022-10-04 11:58 | disposition home or self-care (01) ==
LOC: EDUNIT# 09:54 → ER 09:56
DX: R07.89 Other chest pain (principal); F41.9 Anxiety disorder, unspecified; T43.596A Underdosing of other antipsychotics and neuroleptics, initial encounter; Z91.128 Patient's intentional underdosing of medication regimen for other reason
CPT/HCPCS: 36415; 71046; 80053; 84484; 85025; 93005